=== PATIENT | female | born 1980 | race Caucasian/White ===

== ENCOUNTER 2017-04-29 09:34 | Emergency (ER) | payer MEDICAID, MEDICARE ==
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
[2017-04-29] MEDS: ALPRAZOLAM 1 MG TAB PO ONE (09:52)
== END 2017-04-29 10:41 | disposition home or self-care (01) ==
LOC: ER 09:34
DX: F41.9 Anxiety disorder, unspecified (principal)
CPT/HCPCS: 96361; 96374; 96375; 99282; 99284